=== PATIENT | male | born 1975 | race African-American/Black ===

== ENCOUNTER 2019-10-01 12:44 | Emergency (ER) | payer OTHER ==
[~2019-10-01] VITALS: Ht 185.4 cm; Wt 102.1 kg
[~2019-10-01 12:44] MED LIST: PREDNISONE 20 M20 M1 PO
[2019-10-01] MEDS ORDERED: IBU800 MG PO (12:54)
[2019-10-01 13:06] LABS: ABSOLUTE BASOPHILS 0.1 thou/uL (0.0-0.2); ABSOLUTE EOSINOPHILS 0.1 thou/uL (0.0-0.7); ABSOLUTE LYMPHOCYTES 2.3 thou/uL (0.8-5.3); ABSOLUTE MONOCYTES 0.4 thou/uL (0.0-1.2); ABSOLUTE NEUTROPHILS 1.8 thou/uL (1.6-8.1); BASOPHILS 1.9 %; EOSINOPHILS 2.5 %; HEMOGLOBIN 14.9 gm/dL (14.0-18.0); LYMPHOCYTES 47.9 %; MCH 32.6 pg (26.0-34.0); MCHC 34.7 g/dL (28.0-37.0); MCV 93.8 fL (80.0-100.0); MONOCYTES 9.1 %; MPV 10.1 fl. (7.2-11.1); NUCLEATED RBCS 0 /100WBC; PLATELET COUNT* 157 thou/uL (150-400); POLYS 38.6 %; RBC 4.58 mil/uL (4.50-6.00); RDW-CV 13.9 % (10.5-14.5); WBC 4.7 thou/uL (4.0-11.0)
[2019-10-01 13:16] LABS: APTT 25.7 Seconds (25.0-31.3); PROTIME 10.4 Seconds (9.20-11.50)
[2019-10-01 13:17] LABS: CALCIUM 8.4 mg/dL (8.5-10.1); CREATININE 1.1 mg/dL (0.6-1.3); POTASSIUM 3.5 mmol/L (3.5-5.1)
[2019-10-01 13:25] LABS: ALBUMIN 3.8 g/dL (3.4-5.0); CK-MB MASS 2.1 ng/mL (<0.5-3.6); MAGNESIUM 1.8 mg/dL (1.8-2.4); TOTAL PROTEIN 7.3 g/dL (6.4-8.2)
[2019-10-01 13:48] VITALS: BP 121/86
--- NOTE | 2019-10-01 16:33 | EKG ---
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 : 1975 Requested By: Remy Ackerman Order Number: [id number] MD: Kevon Hutchins Measurements Intervals [place] Rate: 76 P: 60 AL: 149 QRS: -52 QRSD: 93 T: 4 QT: 372 QTc: 419 Interpretive Statements Sinus rhythm Left anterior fascicular block RSR' in V1 or V2, right VCD Baseline wander in lead(s) V2 No previous ECG available for comparison Electronically Signed On 10-01-2019 16:32:47 CDT by Kevon Hutchins [email or web address] <ELECTRONICALLY SIGNED> By: Kevon Hutchins MD, FAC 10/01/19 1632 1248 1248 Kevon Hutchins MD, [facility] /EPI
== END 2019-10-01 13:48 | disposition home or self-care (01) ==
LOC: M.ERS 12:44
PROVIDERS: Family Medicine
DX: R07.89 Other chest pain (principal); R20.2 Paresthesia of skin; F17.210 Nicotine dependence, cigarettes, uncomplicated; Z88.5 Allergy status to narcotic agent

== ENCOUNTER 2019-11-13 17:57 | Emergency (ER) | payer OTHER ==
[~2019-11-13] VITALS: Ht 182.9 cm; Wt 102.1 kg
[~2019-11-13 17:57] MED LIST changes: +IBU800 MG PO
[2019-11-13] MEDS ORDERED: CLEOCIN HCL150 MG PO (18:34)
[2019-11-13] MEDS ORDERED: NORCO 5-325 TA1 EAC1 PO (18:34)
[2019-11-13] MEDS ORDERED: NAPROSYN500 MG PO (18:34)
[2019-11-13 18:49] VITALS: BP 127/64
== END 2019-11-13 18:50 | disposition home or self-care (01) ==
LOC: M.ERS 17:57
DX: K08.89 Other specified disorders of teeth and supporting structures (principal); Z88.6 Allergy status to analgesic agent